=== PATIENT | female | born 1980 | race Caucasian/White ===

== ENCOUNTER → 2019-09-27 17:06 | Outpatient (CLI) | payer OTHER, SELFPAY ==
--- NOTE | 2019-09-27 17:15 | RAD_ITS ---
STUDY: X-RAY - LUMBOSACRAL SPINE REASON FOR EXAM: Female, 38 years old. BACK AND LEG PAIN TECHNIQUE: 6 view(s) of the lumbosacral spine were obtained. COMPARISON: None FINDINGS: Normal lumbar lordosis. There is no substantial scoliosis. There is normal alignment of the vertebrae. Normal vertebral bodies and endplates. Normal disc space heights. No abnormal motion between flexion and extension. Normal bilateral sacral ala, sacroiliac joints, and visualized sacrum. Normal visualized soft tissue structures. Thoracic spine stimulator. RAD/L/S Spine Comp/w Bending Views IMPRESSION: No osseous abnormality is visible. Electronically Signed: Ralph Gomes MD at 20:39 EDT Tel , Service support ,
--- NOTE | 2019-09-27 17:25 | RAD_ITS ---
HISTORY: BACK AND LEG PAIN ADDITIONAL HISTORY: None provided. TECHNIQUE: Thoracic spine 3 views Number of images including paperwork: 3 COMPARISON: None FINDINGS: VERTEBRAE: No acute fracture. VERTEBRAL ALIGNMENT: No traumatic subluxation. DISKS AND JOINTS: Mild multilevel discogenic degenerative changes. SOFT TISSUES: Unremarkable paraspinous soft tissues. DEVICES: Spinal stimulator lead tips at the T7 level. RAD/Thoracic Spine 3 Views IMPRESSION: No acute findings. Mild degenerative changes. at 1915 Reported and signed by: Gela Baeza MD Electronically Signed: Gela Baeza MD at 19:15 EDT Tel , Service support ,
== END ==
PROVIDERS: Referring Provider Anesthesiology; Visit Provider Anesthesiology
DX: M54.5 Low back pain (principal); M54.6 Pain in thoracic spine; M79.606 Pain in leg, unspecified
CPT/HCPCS: 72072; 72114; 72120

== ENCOUNTER 2020-01-17 12:13 | Day surgery (SDC) | payer OTHER, SELFPAY ==
[2020-01-17] VITALS (7 sets, daily range): BP systolic 86–136; BP diastolic 49–80; PULSE 85–92; RESP 16–18; TEMP 36.4–37.2; O2SAT 98–100; BMI 21.9
[2020-01-17] MEDS: Lactated Ringers 1,000 ML 100 ML IV ×2 (13:08→14:15)
--- NOTE | 2020-01-17 13:56 | DCINST_ITS ---
- Discharge Diagnoses Current Active Problems: Chronic back and lower extremity pain You will use the following diet at home:: No restrictions Your food should be the consistency of: Regular Discharge Activity: Return to Normal Activity, No Restrictions Return to work on:: 01/31/20 May shower in (days): 5 May resume sexual activity in: No Restrictions, 10-14 days, 1 week Weight Bearing Status: Weight bearing as tolerated Call your doctor if your incision/area has: Continuous Slow Oozing, Sudden Increased Bleeding, Increased Pain/ Swelling, Foul Smelling Discharge, Swelling at the incision site Call your doctor if you observe: Fever of 101 or Higher, Coldness, Increased Pain, Numbness or Tingling, Calf discomfort, Uncontrolled pain Suture Line Care: Avoid Pulling/Pushing, Avoid Pinching/Bending Remove Dressing in (days):: 3 Cleanse incision/area with: Soap & Water Allergies/Adverse Reactions: Allergies Penicillins Allergy (Verified 01/09/20 08:58) Angioedema Tetracyclines Allergy (Verified 01/09/20 08:58) Rash acetaminophen [From Vicodin] Adverse Reaction (Verified 01/09/20 08:58) Vomiting adhesive tape Adverse Reaction (Verified 01/17/20 13:00) Rash hydrocodone [From Vicodin] Adverse Reaction (Verified 01/09/20 08:58) Vomiting oxycodone Adverse Reaction (Verified 01/09/20 08:58) Vomiting Sulfa (Sulfonamide Antibiotics) Adverse Reaction (Verified 01/09/20 08:58) NEEDS FOLLOW-UP Medications to take at Discharge Cyproheptadine HCl 4 mg PO QHS 01/09/20 Desvenlafaxine Succinate [Pristiq] 100 mg PO DAILY 01/09/20 Gabapentin [Neurontin] 300 mg PO TIDCM 01/09/20 Lamotrigine [Lamictal Xr] 150 mg PO BID 01/09/20 Lorazepam [Ativan] 0.5 mg PO BID 01/09/20 Sumatriptan [Imitrex] 6 mg SUBCUT .X1 PRN PRN 01/09/20 Tapentadol HCl [Nucynta ER] 50 mg PO BID 01/09/20 Tizanidine HCl [Zanaflex] 4 mg PO TID 01/09/20 Topiramate [Topamax] 200 mg PO BID 01/09/20 Orders to be completed after discharge: CORONAVIRUS 19, MANI SENDOUT Time Frame: 01/10/20, Facility: [facility], Location: Laboratory ,Urine Time Frame: 01/17/20, Facility: [facility], Location: Laboratory Primary Care Physician: Care Physician,No Primary [Primary Care Provider] - Test Results: Test results from this visit will be discussed in further detail at your follow- up appointment, if applicable. Please Follow Up With: Frank Guerrero MD
--- NOTE | 2020-01-17 14:04 | RAD_ITS ---
STUDY: X-RAY - LUMBAR SPINE REASON FOR EXAM: Female, 39 years old. SPINAL CORD STIMULATOR REMOVAL TECHNIQUE: 4 intraoperative view(s) of the lumbar spine were obtained. COMPARISON: None FINDINGS: Intraoperative localizing images demonstrate a marker indicating the L2 level. RAD/Lumbar Spine 2 or 3 Views IMPRESSION: Localizing images of the lumbar spine. Electronically Signed: Fred Bowie DO at 19:27 EDT Tel [phone], Service support ,
[2020-01-17] MEDS: Bupivacaine Mpf 0.5% 30 ML VIAL (14:42)
--- NOTE | 2020-01-17 14:55 | OP.PCM_ITS ---
Problem List (1) Postlaminectomy syndrome, not elsewhere classified Status: Acute (2) Failed back syndrome of lumbar spine Status: Acute (3) Failed back syndrome of lumbar spine Status: Acute Report of Operation Date of Procedure: 01/17/20 Pre-Operative Diagnosis: Lower back pain and lumbar postlaminectomy syndrome. Spinal cord stimulator system failure Post-Operative Diagnosis: Spinal cord stimulator system failure Surgery/Procedure Performed:: Spinal cord stimulator NUVECTRA removal Description of Surgical Findings:: After informed consent about the procedure, review prior care for the presenting complaint of lower back pain and lower extremity radicular pain. Patient had spinal cord stimulator / permanent implant IPG at Left [id number] region, and 2 leads Nuvectra system which was not working. Also after frequent attempts to reach the [email or web address] it was found that the [email or web address] went out of business and estimate her sister has no longer support service. Patient was seen by a spine surgeon who recommended for MRI thoracic and lumbar and recommended to take the field system. Patient taken to OR [2], placed to the prone position pressure points were padded appropriate monitoring per anesthesia team were applied patient was safe to administer anesthesia per anesthesia team. Anesthesia provided is general /MAC anesthesia/monitored anesthesia care with no intubation. After appropriate fluoroscopy guidance and marking of the targeted area to , identified the 2 anchor of the 2 leads at the level of L2-3, appropriate draping was applied, sterile preparation using DuraPrep to both incision in the mid lumbar spinal area at the level of the L2-3, and of the left gluteal region for the IPG already in place. Incision started , used 25-gauge needle for skin infiltration with local anesthesia using preservative-free lidocaine 0.5% mixture was Marcaine 0.25% was 1-200,000 epinephrine. Using #15 blade, made 2.5 inch longer to the incision, longitudinal, at the level of L2-L3 at the midline using # 15 blade. Incision was completed using cauterization at level 25?, coagulation at levels 25? to ensure no bleeding spots. After proper exploration of the area, identified the 2 anchors, blunt dissection, loosened from the supraspinous ligament which noted that the 2 anchor was already loose, I was able to pull the 2 limbs freely from the posterior's epidural space, no bleeding or CSF fluid leakage noted. Observation of the area for 2 minutes has identified no leakage of blood. I was noted to lead was anchored to the left flank, I was not able to freely pull the leads, I had made to incision one above the IPG pocket in the left gluteal region, I was able to explore the IPG site, I took the battery out freely also which was loose and not sutured to the subcutaneous tissue on the wrist. I had to meet half inch incision above the curve of the lid on the left flank area to free the leads as it was anchored and tied on itself in order to be able to pull it freely from the IPG pocket. After ensuring removing the whole 2 leads, IPG and all anchors out, confirmed with fluoroscopy postprocedure on all sides. We have used sterile irrigation to irrigate both pockets, followed by closure with the deep layer with 2-0 Vicryl and closure of the superficial layer with subcuticular closure with Vicryl sutures. We applied dressing using Dermabond,/covering with transparent sterile dressing. Patient was given antibiotic coverage before the procedure, clindamycin 900 mg IV as a preoperative as she is allergic to penicillin. In conclusion Spenco distractors whole system was removed freely, no complication no bleeding noted Patient tolerated the procedure well taken to recovery and prepared to be discharged home once meets anesthesia criteria, patient was given the postoperative instruction and the follow-up procedure including antibiotic coverage instructions. Type of Anesthesia:: General, MAC Estimated Blood Loss (mL): None Description of Procedure: See above noted removal of spinal cord stim letter IPG and 2 leads out Due to failed spinal cord stimulator NUVECTRA system - Complications No complication, no CSF leak, no neurological complication, patient has intact postprocedure neurological function.
== END 2020-01-17 16:40 | disposition home or self-care (01) ==
LOC: SDC 12:22 → AC 12:37
PROVIDERS: Referring Provider Anesthesiology; Visit Provider Anesthesiology
PROC: (CPT 63685; principal; 2020-01-17 13:15)
DX: T85.192A Other mechanical complication of implanted electronic neurostimulator of spinal cord electrode (lead), initial encounter (principal); M96.1 Postlaminectomy syndrome, not elsewhere classified; G89.29 Other chronic pain; K21.9 Gastro-esophageal reflux disease without esophagitis; F31.9 Bipolar disorder, unspecified; F41.9 Anxiety disorder, unspecified; F43.10 Post-traumatic stress disorder, unspecified; F17.200 Nicotine dependence, unspecified, uncomplicated; Z79.899 Other long term (current) drug therapy; Z79.891 Long term (current) use of opiate analgesic
CPT/HCPCS: 01922; 63661; 63688; 72100; 76000; J7120; J2405

== ENCOUNTER → 2020-05-13 10:24 | Outpatient (CLI) | payer OTHER, SELFPAY ==
[2020-05-13 09:22] VITALS: BMI 24.7
[2020-05-13 11:05] LABS: Erythrocyte Sedimentation Rate 30 mm/hr (0-30)
== END ==
PROVIDERS: Referring Provider Anesthesiology; Visit Provider Anesthesiology
DX: M51.17 Intervertebral disc disorders with radiculopathy, lumbosacral region (principal); S39.012A Strain of muscle, fascia and tendon of lower back, initial encounter
CPT/HCPCS: 36415; 85652